=== PATIENT | male | born 1970 | race Two or more races ===

== ENCOUNTER 2024-10-18 15:36 | Inpatient (IN) | payer MEDICAID, OTHER ==
[~2024-10-18] VITALS: Ht 182.9 cm; Wt 88.5 kg
[2024-10-18 16:20] LABS: Basophils # (auto) 0 10 ^3/uL (0-0.2); Basophils % (auto) 0.3 % (0.0-2.0); Eosinophils # (auto) 0.1 10 ^3/uL (0-0.8); Eosinophils % (auto) 1.4 % (0.0-7.0); Hematocrit 39.7 % (41.0-53.0); Hemoglobin 13.5 g/dL (13.5-17.5); Lymphocytes # (auto) 1.4 10 ^3/uL (0.4-5.4); Lymphocytes % (auto) 18.5 % (10.0-50.0); Mean Corpuscular Hemoglobin 33.7 pg (28.0-32.0); Monocytes # (auto) 0.7 10 ^3/uL (0-1.3); Monocytes % (auto) 8.9 % (0.0-12.0); Neutrophils # (auto) 5.4 10 ^3/uL (1.6-8.6); Neutrophils % (auto) 70.9 % (37.0-80.0); Platelet Count (auto) 189 10^3/uL (140-450); Red Blood Cells 4.01 10^6/uL (4.5-5.90); Red Cell Distribution Width 12.8 % (11.8-14.3); White Blood Cell 7.7 10^3/uL (4.4-10.8)
--- NOTE | 2024-10-18 16:23 | DVH ---
CHEST RADIOGRAPH Indication: CP Technique: Frontal and lateral view of the chest was obtained Comparison: None FINDINGS: Lines and Tubes: None Lungs: Clear Pleura: No effusion. No pneumothorax. Cardiomediastinal contours: Unremarkable Bones: Unremarkable IMPRESSION: 1. No evidence of acute disease. Patient is status post sternotomy.
--- NOTE | 2024-10-18 16:24 | ED.PDOC ---
History of Present Illness HPI Comments 53M presents to the ER w/ prior MHx of Stage 3 kidney [place];SHx of CABG, Tumor Removal Sx, ABD Exploratory Sx and the c/c of CP. Pt reports on having a family member who go him sick earlier last week w/ him having a cough on 10/11/24 and having N/V/D, w/ sharp, pressure like CP which radiated down the right arm and up to the chin on Monday of 10/14/23. [facility] and [facility] 2L of O2 NC and did not tell us the pt's %. Social Hx of marijuana use, but denies alcohol and tobacco use. Denies chills, fever, SOB. Denies any other associated symptom's, modifiers, or recent injuries or sick contact at this time. Chief Complaint: Chest Pain Time Seen by MD: 15:55 Reviewed Notes: Nurses Notes, Medications, Allergies Allergies: Coded Allergies: Penicillins (Verified Allergy, Unknown, 10/18/24) Morphine (Verified Adverse Reaction, Unknown, 10/18/24) extreme headache Information Source: Patient Mode of Arrival: Ambulatory Severity: Moderate Timing: Days Duration: Since onset, Days Prehospital treatment: None Past Medical History PAST MEDICAL HISTORY: CKF (Stage 3) Surgical History: CABG Surgical History (Other): Tumor Removal, ABD exploratory Sx Family History Family History: Reviewed,noncontributory to illness, Unknown Social History Smoker: Non-Smoker Alcohol: Denies ETOH Use Drugs: Marijuana Lives In: Home Constitutional: denies: chills, diaphoresis, fatigue, fever, malaise, sweats, weakness, others EENTM: denies: blurred vision, double vision, ear bleeding, ear discharge, ear drainage, ear pain, ear ringing, eye pain, eye redness, hearing loss, mouth pain, mouth swelling, nasal discharge, nose bleeding, nose congestion, nose pain, photophobia, tearing, throat pain, throat swelling, voice changes, others Respiratory: reports: cough, shortness of breath; denies: hemoptysis, orthopnea, SOB at rest, SOB with excertion, stridor, wheezing, others Cardiovascular: reports: chest pain; denies: dizzy spells, diaphoresis, Dyspnea on exertion, edema, irregular heart beat, left arm pain, lightheadedness, palpitations, PND, syncope, others Gastrointestinal: reports: diarrhea, nausea, vomiting; denies: abdomen distended, abdominal pain, blood streaked bowels, constipated, dysphagia, difficulty swallowing, hematemesis, melena, poor appetite, poor fluid intake, rectal bleeding, rectal pain, others Genitourinary: denies: burning, dysuria, flank pain, frequency, hematuria, incontinence, penile discharge, penile sore, pain, testicle pain, testicle swelling, urgency, others Neurological: denies: dizziness, fainting, headache, left sided numbness, left sided weakness, numbness, paresthesia, pre-existing deficit, right sided numbness, right sided weakness, seizure, speech problems, tingling, tremors, weakness, others Musculoskeletal: denies: back pain, gout, joint pain, joint swelling, muscle pain, muscle stiffness, neck pain, others Integumetry: denies: bruises, change in color, change in hair/nails, dryness, laceration, lesions, lumps, rash, wounds, others Allergic/Immunocompromised: denies: Difficulty Healing, Frequent Infections, Hives, Itching, others Hematologic/Lymphatic: denies: anemia, blood clots, easy bleeding, easy bruising, swollen glands, others Endocrine: denies: excessive hunger, excessive sweating, excessive thirst, excessive urination, flushing, intolerance to cold, intolerance to heat, unexplained weight gain, unexplained weight loss, others Psychiatric: denies: anxiety, bipolar disorder, depression, hopeless, panic disorder, schizophrenia, sleepless, suicidal, others All Other Systems: Reviewed and Negative Physical Exam General Appearance: Moderate Distress HEENT: Pale Conjuntivae (L), Pale Conjuntivae (R), Pharynx Normal, TMs Normal Neck: Full Range of Motion, Non-Tender, Normal, Normal Inspection Respiratory: Chest Non-Tender, Lungs Clear, No Accessory Muscle Use, No Respiratory Distress, Normal Breath Sounds Cardiovascular: No Edema, No JVD, No Murmur, No Gallop, Normal Peripheral Pulses, Regular Rate/Rhythm Breast Exam: Deferred Gastrointestinal: No Organomegaly, Non Tender, No Pulsatile Mass, Normal Bowel Sounds, Soft Genitalia: Deferred Pelvic: Deferred Rectal: Deferred Extremities: No calf tenderness, Normal capillary refill, Normal inspection, Normal range of motion, Non-tender, No pedal edema Musculoskeletal : Apperance: Normal Neurologic: Alert, rug hooker II-XII nml as Tested, Motor Weakness, Normal Affect, Normal Mood, No Sensory Deficits Cerebellar Function: Normal Reflexes: Normal Skin: Dry, Normal Color, Warm Lymphatic: No Adenopathy Was a procedure done? Was a procedure done?: No EKG EKG : Pulse Rate (adult): 86 [place]: Normal Cardiac Rhythm: NSR Block: None ST: Nonsp Differential Dx Considerations may include: ACS, MD, acute myocardial ischemia, PE X-Ray, Labs, Meds, VS Vital Signs Date Time Temp Pulse Resp B/P (MAP) Pulse Ox O2 Delivery O2 Flow Rate FiO2 10/18/24 19:00 69 18 129/84 (99) 96 10/18/24 18:38 73 10/18/24 17:15 Room Air* 0 21 10/18/24 17:00 98.4 72 16 116/63 (80) 97 98.4 10/18/24 16:37 86 10/18/24 15:44 84 10/18/24 15:36 98.4 64 64 107/68 (81) 88 98.4 Lab Test 10/18/24 18:40 10/18/24 16:41 10/18/24 15:59 Range/Units Troponin I High Sensitivity 4250 *H 4418 *H 4529 *H </=54 ng/L Influenza Type A Antigen Negative Negative Influenza Type B Antigen Negative Negative SARS-CoV-2 Antigen (Rapid) Negative NEGATIVE White Blood Count 7.7 4.4-10.8 10^3/uL Red Blood Count 4.01 L 4.5-5.90 10^6/uL Hemoglobin 13.5 13.5-17.5 g/dL Hematocrit 39.7 L 41.0-53.0 % Mean Corpuscular Volume 99.0 80.0-100.0 fL Mean Corpuscular Hemoglobin 33.7 H 28.0-32.0 pg Mean Corpuscular Hemoglobin Concent 34.0 32.0-36.0 g/dL Red Cell Distribution Width 12.8 11.8-14.3 % Platelet Count 189 140-450 10^3/uL Mean Platelet Volume 7.6 6.9-10.8 fL Neutrophils (%) (Auto) 70.9 37.0-80.0 % Lymphocytes (%) (Auto) 18.5 10.0-50.0 % Monocytes (%) (Auto) 8.9 0.0-12.0 % Eosinophils (%) (Auto) 1.4 0.0-7.0 % Basophils (%) (Auto) 0.3 0.0-2.0 % Neutrophils # (Auto) 5.4 1.6-8.6 10 ^3/uL Lymphocytes # (Auto) 1.4 0.4-5.4 10 ^3/uL Monocytes # (Auto) 0.7 0-1.3 10 ^3/uL Eosinophils # (Auto) 0.1 0-0.8 10 ^3/uL Basophils # (Auto) 0 0-0.2 10 ^3/uL Nucleated Red Blood Cells 0.0 % Prothrombin Time 10.6 9.3-11.8 sec Prothrombin Time INR 1.00 0.9-1.15 Activated Partial Thromboplast Time 26.5 24.5-34.5 SEC Sodium Level 141 136-145 mmol/L Potassium Level 3.9 3.5-5.1 mmol/L Chloride Level 108 H 98-107 mmol/L Carbon Dioxide Level 27 20-31 mmol/L Anion Gap 6 5-15 Blood Urea Nitrogen 20 9-23 mg/dL Creatinine 1.86 H 0.700-1.30 mg/dL Glomerular Filtration Rate Calc 42 >90 mL/min BUN/Creatinine Ratio 10.8 10.0-20.0 Serum Glucose 113 H 74-106 mg/dL Calcium Level 10.1 8.7-10.4 mg/dL B-Type Natriuretic Peptide 51.60 0-100 pg/mL Current Medications Medications (Trade) Dose Ordered Sig/Fabien Route Start Time Stop Time Status Last Admin Aspirin 162 mg ONCE ONCE PO 10/18/24 17:00 10/18/24 17:01 DC 10/18/24 17:11 Heparin Sodium (Porcine) 4,000 units ONCE ONCE IV 10/18/24 18:00 10/18/24 18:01 DC 10/18/24 19:02 Heparin Sodium/ Dextrose 250 ml @ 10 mls/hr Q24H IV 10/18/24 19:00 10/18/24 19:03 Atorvastatin Calcium (Lipitor) 80 mg ONCE ONCE PO 10/18/24 18:00 10/18/24 18:01 DC 10/18/24 18:17 IMPRESSION: 1. No evidence of acute disease. Patient is status post sternotomy. IV Hep-Lock was established The patient was given aspirin 162 mg by mouth The patient was bolused with heparin at 4000 units IV push secondary to the elevated troponin levels and being non STEMI The patient was also being started on a heparin drip. The patient was given Lipitor The patient's chemistry panel shows a creatinine of 1.86 but otherwise within normal limits The patient's CBC is within normal limits The influenza a and influenza B are negative The COVID test is negative At this time, the patient was being admitted Cardiology did come and see the patient and the patient will be taken to the solder making laborer either tomorrow or the following day. We will continue to monitor the patient was troponin levels The 1st troponin level came back at 4529 The troponin level has stayed around 8991-4568 The patient was being admitted We discussed the findings with the patient and they are in agreement with the management. Images Reviewed?: Images reviewed and evaluated by me Time of 1ST Reevaluation: 16:25 Reevaluation 1ST: Unchanged Patient Education/Counseling: Diagnosis, Treatment, Prognosis Family Education/Counseling: No Family Present Departure 1 Departure Time of Disposition: 20:26 Impression: Primary Impression: Non-STEMI (non-ST elevated myocardial infarction) Disposition: 09 ADMITTED INPATIENT Admit to: [facility] Condition: Fair Critical Care Note Critical Care Time?: Yes (55 min-critical care time only) Stability Stability form required: Yes Unstable for transfer: Telemetry monitoring (Telemetry monitoring required), ED Physician Assesment (Clinical assesment) Heart Score Heart Score: Heart Score Response (Comments) Value History Moderate Suspicious 1 EKG Repolarization Disturb 1 Age 45-64 1 Risk Factors >3 or Hx ASHD 2 Troponin >3 x's Normal limit 2 Total 7 I personally scribed for BETHANY GARRETT MD ([email or web address]) on 10/18/24 at 16:24. Electronically submitted by Rubens Valencia ([employer]). I personally scribed for BETHANY GARRETT MD ([email or web address]) on 10/18/24 at 18:44. Electronically submitted by Rubens Valencia ([employer]). BETHANY GARRETT MD October 18, 2024 16:24
[2024-10-18 17:06] LABS: Potassium 3.9 mmol/L (3.5-5.1); Sodium 141 mmol/L (136-145)
[2024-10-18 17:07] LABS: Anion Gap 6 (5-15); Calcium 10.1 mg/dL (8.7-10.4); Carbon Dioxide 27 mmol/L (20-31)
[2024-10-18 17:10] LABS: Chloride 108 mmol/L (98-107)
[2024-10-18] MEDS: ASPirin 81 mg TAB PO ONE (17:11)
[2024-10-18 17:12] LABS: BUN/Creatinine Ratio 10.8 (10.0-20.0); Blood Urea Nitrogen 20 mg/dL (9-23)
[2024-10-18 17:13] LABS: Glucose 113 mg/dL (74-106)
[2024-10-18] MEDS: ATORVASTATIN 20 MG TAB PO ONE (18:17)
[2024-10-18 18:31] LABS: Partial Thromboplastin Time 26.5 SEC (24.5-34.5); Prothrombin Time 10.6 sec (9.3-11.8)
[2024-10-18] MEDS: HEPARIN SODIUM (PORCINE) 5000 UNITS/ML 1ML VIAL IV ONE (19:02)
[2024-10-18] MEDS: HEPARIN DRIP/D5W 100UNITS/ML 250 ML IV SCH (19:03)
--- NOTE | 2024-10-18 19:13 | DVHINCON2 ---
Allergies: Coded Allergies: Penicillins (Verified Allergy, Unknown, 10/18/24) Morphine (Verified Adverse Reaction, Unknown, 10/18/24) extreme headache Current Medications Current Medications Medications (Trade) Dose Ordered Sig/Fabien Route PRN Reason Start Time Stop Time Status Last Admin Heparin Sodium/ Dextrose 250 ml @ 10 mls/hr Q24H IV 10/18/24 19:00 10/18/24 19:03 Vital Signs Vital Signs Date Time Temp Pulse Resp B/P (MAP) Pulse Ox O2 Delivery O2 Flow Rate FiO2 10/18/24 18:38 73 10/18/24 15:36 98.4 64 107/68 (81) 88 98.4 Labs/Diagnostic Data Labs Test 10/18/24 18:40 10/18/24 15:59 Range/Units White Blood Count 7.7 4.4-10.8 10^3/uL Red Blood Count 4.01 L 4.5-5.90 10^6/uL Hemoglobin 13.5 13.5-17.5 g/dL Hematocrit 39.7 L 41.0-53.0 % Mean Corpuscular Volume 99.0 80.0-100.0 fL Mean Corpuscular Hemoglobin 33.7 H 28.0-32.0 pg Mean Corpuscular Hemoglobin Concent 34.0 32.0-36.0 g/dL Red Cell Distribution Width 12.8 11.8-14.3 % Platelet Count 189 140-450 10^3/uL Mean Platelet Volume 7.6 6.9-10.8 fL Neutrophils (%) (Auto) 70.9 37.0-80.0 % Lymphocytes (%) (Auto) 18.5 10.0-50.0 % Monocytes (%) (Auto) 8.9 0.0-12.0 % Eosinophils (%) (Auto) 1.4 0.0-7.0 % Basophils (%) (Auto) 0.3 0.0-2.0 % Neutrophils # (Auto) 5.4 1.6-8.6 10 ^3/uL Lymphocytes # (Auto) 1.4 0.4-5.4 10 ^3/uL Monocytes # (Auto) 0.7 0-1.3 10 ^3/uL Eosinophils # (Auto) 0.1 0-0.8 10 ^3/uL Basophils # (Auto) 0 0-0.2 10 ^3/uL Nucleated Red Blood Cells 0.0 % Prothrombin Time 10.6 9.3-11.8 sec Prothrombin Time INR 1.00 0.9-1.15 Activated Partial Thromboplast Time 26.5 24.5-34.5 SEC Sodium Level 141 136-145 mmol/L Potassium Level 3.9 3.5-5.1 mmol/L Chloride Level 108 H 98-107 mmol/L Carbon Dioxide Level 27 20-31 mmol/L Anion Gap 6 5-15 Blood Urea Nitrogen 20 9-23 mg/dL Creatinine 1.86 H 0.700-1.30 mg/dL Glomerular Filtration Rate Calc 42 >90 mL/min BUN/Creatinine Ratio 10.8 10.0-20.0 Serum Glucose 113 H 74-106 mg/dL Calcium Level 10.1 8.7-10.4 mg/dL B-Type Natriuretic Peptide 51.60 0-100 pg/mL VIKA CHARLES MD October 18, 2024 19:13
--- NOTE | 2024-10-18 19:16 | DVHCONRES ---
Date Seen: October 18, 2024 Resident Creating Document: RAMÓN AZAR RESIDENT Referring Physician Dr Garcia Reason for Consultation elevated trops History of Present Illness 53-year-old male with past medical history of VT status post CABG 2010, CKD stage 3, HIV, and past surgical history of tumor removal from neck five years ago and abdomen surgery 1991 presented with complaints of nausea, vomiting, di arrhea, chest pain, abdominal pain. Mentioned that a week ago he started having flu-like symptoms including chest and nasal congestion, nausea, vomiting, abdominal pain and diarrhea. Also mentioned having cough with greenish sputum. He mentioned patient had initially abdominal pain which was in epigastric region and later had chest pain which he describes as stabbing, radiating to the left arm, not radiating to back or jaw, improved on exercise, was present on rest, no relation with posture. He mentioned that chest pain was similar in type when he had a heart attack but very less in intensity compared to the previous episode. Refused any shortness of breath, palpitations, orthopnea, PND. He had echocardiogram and stress test 1-1/2 years ago which was within normal limits. He also mentioned that he had low urine output for last seven days. Presented to the ER patient had elevated tropes due to which Cardiology was consulted. Patient is not mentioning of any active chest pain. Social history Quit smoking in 2010, was smoking since the age of 11, is to smoke 1-2 packs per day Denied alcohol use Patient consumes marijuana by smoking "couple of pipes every week" Denied any other drugs Family history Significant for CABG in father and grandfather Medication history Amlodipine Metoprolol Lipitor Furosemide Aspirin Biktarvy Gemfibrozil Omeprazole Allergies: Coded Allergies: Penicillins (Verified Allergy, Unknown, 10/18/24) Morphine (Verified Adverse Reaction, Unknown, 10/18/24) extreme headache Current Medications Current Medications Medications (Trade) Dose Ordered Sig/Fabien Route PRN Reason Start Time Stop Time Status Last Admin Heparin Sodium/ Dextrose 250 ml @ 10 mls/hr Q24H IV 10/18/24 19:00 Review of Systems as described in the HPI Vital Signs Vital Signs Date Time Temp Pulse Resp B/P (MAP) Pulse Ox O2 Delivery O2 Flow Rate FiO2 10/18/24 18:38 73 10/18/24 15:36 98.4 64 107/68 (81) 88 98.4 Physical Exam Examination General Appearance: Alert, Oriented X3, Cooperative, No acute distress HEENT: EOMI Respiratory: Clear to auscultation, Normal air movement Cardiovascular: mild chest tenderness, Regular rate, Normal S1, Normal S2 Abdominal: Normal bowel sounds Extremities: No cyanosis, No edema, Normal pulses, No tenderness/swelling Skin: No rashes, No breakdown Neuro: Normal gait, Normal speech, Strength at 5/5 X4 ext, Normal tone, Sensation intact, Cranial nerves 3-12 NL, Reflexes 2+ Psych/Mental Status: Mental status NL, Mood NL Labs/Diagnostic Data Labs Test 10/18/24 18:40 10/18/24 15:59 Range/Units White Blood Count 7.7 4.4-10.8 10^3/uL Red Blood Count 4.01 L 4.5-5.90 10^6/uL Hemoglobin 13.5 13.5-17.5 g/dL Hematocrit 39.7 L 41.0-53.0 % Mean Corpuscular Volume 99.0 80.0-100.0 fL Mean Corpuscular Hemoglobin 33.7 H 28.0-32.0 pg Mean Corpuscular Hemoglobin Concent 34.0 32.0-36.0 g/dL Red Cell Distribution Width 12.8 11.8-14.3 % Platelet Count 189 140-450 10^3/uL Mean Platelet Volume 7.6 6.9-10.8 fL Neutrophils (%) (Auto) 70.9 37.0-80.0 % Lymphocytes (%) (Auto) 18.5 10.0-50.0 % Monocytes (%) (Auto) 8.9 0.0-12.0 % Eosinophils (%) (Auto) 1.4 0.0-7.0 % Basophils (%) (Auto) 0.3 0.0-2.0 % Neutrophils # (Auto) 5.4 1.6-8.6 10 ^3/uL Lymphocytes # (Auto) 1.4 0.4-5.4 10 ^3/uL Monocytes # (Auto) 0.7 0-1.3 10 ^3/uL Eosinophils # (Auto) 0.1 0-0.8 10 ^3/uL Basophils # (Auto) 0 0-0.2 10 ^3/uL Nucleated Red Blood Cells 0.0 % Prothrombin Time 10.6 9.3-11.8 sec Prothrombin Time INR 1.00 0.9-1.15 Activated Partial Thromboplast Time 26.5 24.5-34.5 SEC Sodium Level 141 136-145 mmol/L Potassium Level 3.9 3.5-5.1 mmol/L Chloride Level 108 H 98-107 mmol/L Carbon Dioxide Level 27 20-31 mmol/L Anion Gap 6 5-15 Blood Urea Nitrogen 20 9-23 mg/dL Creatinine 1.86 H 0.700-1.30 mg/dL Glomerular Filtration Rate Calc 42 >90 mL/min BUN/Creatinine Ratio 10.8 10.0-20.0 Serum Glucose 113 H 74-106 mg/dL Calcium Level 10.1 8.7-10.4 mg/dL B-Type Natriuretic Peptide 51.60 0-100 pg/mL Plan/Recommendation Assessment and plan # chest pain, possible NSTEMI # elevated tropes , possible NSTEMI # history of VT status post CABG 2010 -patient takes aspirin and statin at home -Trops 4529 , 4418 # hypertension Patient takes amlodipine, metoprolol, at home # HIV Mentioned CD4 count greater than 500 and no detectable HIV count Follows Dr. Nicholson On Biktarvy #? ANGEL on stage III CKD -mentioned has been having any urea # possible UTI and viral gastroenteritis Plan Continue aspirin and statin Monitor with telemetry EKG Repeat trops Echo started on heparin drip schedule the patient for LHC on monday Case discussion with Dr CHARLES agree with plan pt seen with cv team heparn gtt check echo possible LHC pt was a former pt of mine [place] to [place] Plan discussed with: Patient, Other RAMÓN AZAR RESIDENT October 18, 2024 19:16 VIKA CHARLES MD October 19, 2024 14:01
[2024-10-18 19:33] LABS: COVID19 ANTIGEN SOFIA FIA NEGATIVE (NEGATIVE)
[2024-10-18 19:34] LABS: Rapid Influenza A Negative (Negative); Rapid Influenza B Negative (Negative)
[2024-10-18 19:50] VITALS: O2SAT 96
[2024-10-18] MEDS ORDERED: DOCUSATE SOD 100 MG CAP PO PRN (20:15)
[2024-10-18] MEDS ORDERED: ONDANSETRON HCL 4 MG/2 ML VIAL IV PRN (20:15)
[2024-10-18] MEDS ORDERED: HYDROcodone-ACET 5/325MG TAB PO PRN (20:15)
[2024-10-18] MEDS ORDERED: ACETAMINOPHEN 325 MG TAB PO PRN (20:15)
[2024-10-18] MEDS ORDERED: hydrALAZINE HCL 20 MG/ML VL IV PRN (20:15)
--- NOTE | 2024-10-18 20:33 | ECG ---
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
--- NOTE | 2024-10-18 21:53 | DVHHP2 ---
History of Present Illness Reason for Visit: Non-STEMI (non-ST elevated myocardial infarction) History of Present Illness The patient is a 53-year-old male with past medical history of CKF stage III, CHF, hyperlipidemia, and hypertension who presented to [facility] ED with complaint of chest pain. Patient reports symptoms progressively get worse with substernal chest pain, radiating down to the right, getting worse that prompted this visit. Patient was seen and evaluated in the ED, laboratory data shows WBC 7.7, platelets 189, sodium 141, potassium 3.9, BUN 20, creatinine 1.86, glucose 113, troponin 4529, BNP 51.60, blood pressure 107/68, heart rate 86, temperature 98.4 F, O2 saturation 88% on oxygen. Chest x-ray show no evidence of acute disease. Please see medication orders section in the computer. On my assessment, patient denied chest pain, no headache, no dizziness, no diaphoresis, currently on oxygen, no nausea, no vomiting, no fever, no chills. Patient was admitted for further evaluation and medical management. Past Medical History Chronic kidney failure stage III, CHF, HLD, HTN. Past Surgical History CABG, Tumor Removal, ABD exploratory surgery Family History Reviewed, noncontributory to the management of this case. Past Social History The patient lives at home, denies smoking, no alcohol, uses marijuana. Review of Systems Constitutional: Yes: Weakness; No: Fever, Chills, Sweats, Malaise, Other Eyes: No: Pain, Vision change, Conjunctivae inflammation, Eyelid inflammation, Other, Redness ENT: No: Ear pain, Ear discharge, Nose pain, Nose discharge, Nose congestion, Mouth pain, Mouth swelling, Throat pain, Throat swelling, Other Respiratory: No: Cough, Dry, Shortness of breath, SOB with excertion, Wheezing, Hemoptysis, Pleuritic Pain, Sputum, Wheezing, Other Cardiovascular: Chest Pain; No: Palpitations, Orthopnea, Paroxysmal Noc. Dyspnea, Edema, Lt Headedness, Other Gastrointestinal: No: Nausea, Vomiting, Abdominal Pain, Diarrhea, Constipation, Melena, Hematochezia, Other Genitourinary: No Dysuria, No Frequency, No Incontinence, No Hematuria, No Ret ention, No Other Musculoskeletal: shoulder pain; No: other, neck pain, arm pain, back pain, hand pain, leg pain, foot pain Skin: No: Rash, Lesions, Jaundice, Bruising, Other Neurological: No: Weakness, Numbness, Incoordination, Change in speech, Confusion, Seizures, Other Allergies: Coded Allergies: Penicillins (Verified Allergy, Unknown, 10/18/24) Morphine (Verified Adverse Reaction, Unknown, 10/18/24) extreme headache Medications Current Medications Medications Dose Ordered Sig/Fabien Route Start Time Stop Time Status Last Admin Dose Admin Heparin Sodium/ Dextrose 250 ml @ 10 mls/hr Q24H IV 10/18/24 19:00 10/18/24 19:03 10 MLS/HR Atorvastatin Calcium 40 mg HS PO 10/18/24 22:00 Famotidine 20 mg Q12HR IV 10/18/24 22:00 Aspirin 81 mg DAILY PO 10/19/24 10:00 Tamsulosin HCl 0.4 mg QPM PO 10/19/24 18:00 Hydralazine HCl 10 mg Q6HP PRN IV 10/18/24 20:15 Sodium Chloride 10 ml Q8HR IV 10/18/24 22:00 Acetaminophen/ Hydrocodone Bitart 1 tab Q4HP PRN PO 10/18/24 20:15 Ondansetron HCl 4 mg Q4HP PRN IV 10/18/24 20:15 Docusate Sodium 100 mg BIDPRN PRN PO 10/18/24 20:15 Acetaminophen 650 mg Q6HP PRN PO 10/18/24 20:15 Exam Vital Signs Vital Signs Date Time Temp Pulse Resp B/P (MAP) Pulse Ox O2 Delivery O2 Flow Rate FiO2 10/18/24 20:28 86 10/18/24 19:00 18 129/84 (99) 96 10/18/24 17:15 Room Air* 0 21 10/18/24 17:00 98.4 98.4 General Appearance: Alert, Oriented X3, Cooperative, No acute distress HEENT: Atraumatic, PERRLA, EOMI, Mucous membr. moist/pink Respiratory: Clear to auscultation, Normal air movement, Other Cardiovascular: Regular rate, Normal S1, Normal S2, No murmurs Abdominal: Normal bowel sounds, Soft, No tenderness, No hepatospenomegaly, No masses Extremities: No clubbing, No cyanosis, No edema, Normal pulses, No tenderness/swelling Skin: No rashes, No breakdown, No significant lesion Neuro: Normal speech, Normal tone, Sensation intact, Cranial nerves 3-12 NL, Reflexes 2+, Other (Generalized weakness) Psych/Mental Status: Mental status NL, Mood NL Labs/Xrays Labs Test 10/18/24 18:40 10/18/24 15:59 Range/Units Troponin I High Sensitivity 4250 *H </=54 ng/L Influenza Type A Antigen Negative Negative Influenza Type B Antigen Negative Negative SARS-CoV-2 Antigen (Rapid) Negative NEGATIVE White Blood Count 7.7 4.4-10.8 10^3/uL Red Blood Count 4.01 L 4.5-5.90 10^6/uL Hemoglobin 13.5 13.5-17.5 g/dL Hematocrit 39.7 L 41.0-53.0 % Mean Corpuscular Volume 99.0 80.0-100.0 fL Mean Corpuscular Hemoglobin 33.7 H 28.0-32.0 pg Mean Corpuscular Hemoglobin Concent 34.0 32.0-36.0 g/dL Red Cell Distribution Width 12.8 11.8-14.3 % Platelet Count 189 140-450 10^3/uL Mean Platelet Volume 7.6 6.9-10.8 fL Neutrophils (%) (Auto) 70.9 37.0-80.0 % Lymphocytes (%) (Auto) 18.5 10.0-50.0 % Monocytes (%) (Auto) 8.9 0.0-12.0 % Eosinophils (%) (Auto) 1.4 0.0-7.0 % Basophils (%) (Auto) 0.3 0.0-2.0 % Neutrophils # (Auto) 5.4 1.6-8.6 10 ^3/uL Lymphocytes # (Auto) 1.4 0.4-5.4 10 ^3/uL Monocytes # (Auto) 0.7 0-1.3 10 ^3/uL Eosinophils # (Auto) 0.1 0-0.8 10 ^3/uL Basophils # (Auto) 0 0-0.2 10 ^3/uL Nucleated Red Blood Cells 0.0 % Prothrombin Time 10.6 9.3-11.8 sec Prothrombin Time INR 1.00 0.9-1.15 Activated Partial Thromboplast Time 26.5 24.5-34.5 SEC Sodium Level 141 136-145 mmol/L Potassium Level 3.9 3.5-5.1 mmol/L Chloride Level 108 H 98-107 mmol/L Carbon Dioxide Level 27 20-31 mmol/L Anion Gap 6 5-15 Blood Urea Nitrogen 20 9-23 mg/dL Creatinine 1.86 H 0.700-1.30 mg/dL Glomerular Filtration Rate Calc 42 >90 mL/min BUN/Creatinine Ratio 10.8 10.0-20.0 Serum Glucose 113 H 74-106 mg/dL Calcium Level 10.1 8.7-10.4 mg/dL B-Type Natriuretic Peptide 51.60 0-100 pg/mL PATIENT: KEITH SOW ACCT: [id number] UNIT: [id number] : 1970 LOC: ER ROOM / BED: / AGE / SEX: 53 / M ADM STATUS: REG ER SERVICE 1540 ORDERING PHYSICIAN: BETHANY GARRETT MD PROCEDURE(s): CXR2 - CHEST TWO VIEWS ROUTINE REASON: CP ORDER NUMBER(s): [id number], ACCESSION NUMBER(s): [id number] CHEST RADIOGRAPH Indication: CP Technique: Frontal and lateral view of the chest was obtained Comparison: None FINDINGS: Lines and Tubes: None Lungs: Clear Pleura: No effusion. No pneumothorax. Cardiomediastinal contours: Unremarkable Bones: Unremarkable IMPRESSION: 1. No evidence of acute disease. Patient is status post sternotomy. Assessment/Plan Assessment/Plan Generalized weakness Acute on chronic renal failure Non-STEMI (non-ST elevated myocardial infarction) Plan 1. Admit to telemetry unit 2. Breathing treatment 3. Pain control management 4. Management of fluids and electrolytes 5. Consultation for Cardiology 6. Diagnostic tests chest x-ray 7. DVT prophylaxis-on heparin drip 8. Repeat labs CBC, CMP in a.m. 9. Continue with current medical management 10. Treatment plan discussed with patient and RN. Patient verbalized understanding. Plan discussed with: Patient, Other (RN) My Orders Orders - ELOY GUNTER DNP Procedure Category Date Status Time Atorvastatin (Lipitor) PHA 10/18/24 In Process 22:00 Famotidine Injection PHA 10/18/24 In Process (Pepcid Injection) 22:00 Aspirin Tablet PHA 10/19/24 In Process 10:00 Tamsulosin PHA 10/19/24 In Process Hydrochloride (Flomax) 18:00 Hydralazine Injection PHA 10/18/24 In Process (Apresoline Inject 20:15 Allergies ALLY 10/18/24 In Process 20:05 Code Status CODE 10/18/24 Transmitted 20:05 Sodium Chloride Lock PHA 10/18/24 In Process (Saline Lock Ns) 22:00 Oxygen Per Hour RT 10/18/24 Transmitted 20:05 Hydrocodone-Acet PHA 10/18/24 In Process 5/325mg Tab ([place] 20:15 Ondansetron Hcl PHA 10/18/24 In Process (Zofran) 20:15 Docusate Sodium PHA 10/18/24 In Process Capsule (Colace 20:15 Fall Risk Precautions ALLY 10/18/[address] 20:05 Complete Blood Count LAB 10/19/24 Verified 01:00 Comprehensive LAB 10/19/24 Verified Metabolic Panel 01:00 Condition: Serious ALLY 10/18/24 In Process 20:05 Acetaminophen Tablet PHA 10/18/24 In Process (Tylenol Tablet) 20:15 Maintain Bed Rest ALLY 10/18/24 In Process 20:05 Sequential ALLY 10/18/24 In Process Compression Device Problem List: (1) Generalized weakness (2) Acute on chronic renal failure (3) Non-STEMI (non-ST elevated myocardial infarction) Date of Service: October 18, 2024 Billing Provider: ELOY GUNTER DNP Common Visit Codes: [id number] INP/OBS CARE (HIGH) ELOY GUNTER DNP October 18, 2024 21:53
[2024-10-18] MEDS ORDERED: FAMOTIDINE (10MG/ML) 2ML VL IV SCH (22:00)
[2024-10-18] MEDS ORDERED: NITROGLYCERIN 0.4 MG SL TAB SL PRN (22:00)
[2024-10-18] MEDS: SODIUM CHLOR 0.9% PF (SALINE LOCK) 10ML VIAL/SYR IV SCH (22:00)
[2024-10-18] MEDS ORDERED: ATORVASTATIN 20 MG TAB PO SCH (22:00)
[2024-10-18] MEDS ORDERED: MORPHINE SULFATE INJ 2 MG/ml SYRG IV PRN (22:00)
[2024-10-18] MEDS: ATORVASTATIN 20 MG TAB PO SCH (23:00)
[2024-10-18] MEDS: FAMOTIDINE (10MG/ML) 2ML VL IV SCH (23:45)
[2024-10-18 23:53] LABS: INR 1.04 (0.9-1.15); Partial Thromboplastin Time 46.6 SEC (24.5-34.5)
[2024-10-19] VITALS (12 sets, daily range): BP systolic 109–133; BP diastolic 67–93; PULSE 66–83; RESP 16–21; TEMP 97.8–98.3; O2SAT 89–98
[2024-10-19] MEDS: HEPARIN DRIP/D5W 100UNITS/ML 250 ML IV SCH (01:45)
[2024-10-19 02:33] LABS: Urine Bacteria None Seen /hpf (None Seen)
[2024-10-19 02:43] LABS: Urine Blood Negative /uL (Negative); Urine Clarity Clear (Clear); Urine Color Yellow (Yellow); Urine Mucus FEW (None Seen); Urine Protein, UAD TRACE (Negative); Urine Specific Gravity 1.031 (1.001-1.035); Urine Squamous Epithelial Cell None Seen /hpf (<5); Urine Urobilinogen 2 mg/dL (Negative); Urine WBC 4 /HPF (0-3); Urine pH 6.5 (5.0-9.0)
[2024-10-19 03:25] LABS: INR 1.07 (0.9-1.15); Partial Thromboplastin Time 50.4 SEC (24.5-34.5); Prothrombin Time 11.3 sec (9.3-11.8)
[2024-10-19] MEDS: HYDROcodone-ACET 5/325MG TAB PO PRN (04:02)
[2024-10-19 07:39] LABS: Basophils # (auto) 0 10 ^3/uL (0-0.2); Basophils % (auto) 0.3 % (0.0-2.0); Eosinophils # (auto) 0.1 10 ^3/uL (0-0.8); Eosinophils % (auto) 2.2 % (0.0-7.0); Hematocrit 36.2 % (41.0-53.0); Hemoglobin 12.4 g/dL (13.5-17.5); Lymphocytes # (auto) 1.4 10 ^3/uL (0.4-5.4); Mean Corpuscular Hemoglobin 33.6 pg (28.0-32.0); Mean Corpuscular Hgb Conc. 34.1 g/dL (32.0-36.0); Mean Corpuscular Volume 98.6 fL (80.0-100.0); Monocytes # (auto) 0.6 10 ^3/uL (0-1.3); Monocytes % (auto) 9.5 % (0.0-12.0); Neutrophils # (auto) 3.8 10 ^3/uL (1.6-8.6); Platelet Count (auto) 151 10^3/uL (140-450); Red Blood Cells 3.67 10^6/uL (4.5-5.90); White Blood Cell 5.9 10^3/uL (4.4-10.8)
[2024-10-19 07:47] LABS: INR 1.06 (0.9-1.15); Partial Thromboplastin Time 60.7 SEC (24.5-34.5); Prothrombin Time 11.2 sec (9.3-11.8)
[2024-10-19 07:49] LABS: Alanine Aminotransferase 26 U/L (7-40); Albumin 4.2 g/dL (3.2-4.8); Alkaline Phosphatase 62 U/L (46-116); Anion Gap 6 (5-15); Aspartate Aminotransferase 38 U/L (13-40); BUN/Creatinine Ratio 12.2 (10.0-20.0); Blood Urea Nitrogen 19 mg/dL (9-23); Calcium 9.6 mg/dL (8.7-10.4); Carbon Dioxide 26 mmol/L (20-31); Glucose 91 mg/dL (74-106); Potassium 3.8 mmol/L (3.5-5.1); Sodium 140 mmol/L (136-145); Total Protein 6.3 g/dL (5.7-8.2)
[2024-10-19 07:50] LABS: Bilirubin, Total 0.6 mg/dL (0.2-1.0)
[2024-10-19 07:52] LABS: Chloride 108 mmol/L (98-107)
--- NOTE | 2024-10-19 08:59 | CONS ---
Pharmacy Clinical Information: CONTINUE HEPARIN DRIP AT RATE 1200 UNITS/HR = 12 ML/HR PER APTT OF 60.7 (THE RAPEUTIC). NEXT APTT DRAW SCHEDULED FOR 1300 PER RX PROTOCOL. PHARMACY WILL SCHEDULE APTT DRAWS; PLEASE DO NOT SELF SCHEDULE. RANJITH DUDLEY PHARMACIST October 19, 2024 08:59
[2024-10-19] MEDS: ASPirin 81 mg TAB PO SCH (10:18)
[2024-10-19] MEDS: OPTISON 3ml Vial for INJ IV ONE (11:12)
--- NOTE | 2024-10-19 13:04 | DVHPN2 ---
Reviewed: Care Plan, H&P, Labs, Medications, Previous Orders, Radiology Changes from previous H/P or p: No Changes Eyes: No Pain, No Vision change, No Conjunctivae inflammation, No Eyelid inflammation, No Other, No Redness ENT: No Ear pain, No Ear discharge, No Nose pain, No Nose discharge, No Nose congestion, No Mouth pain, No Mouth swelling, No Throat pain, No Throat swelling, No Other Cardiovascular: Chest Pain; No Palpitations, No Orthopnea, No Paroxysmal Noc. Dyspnea, No Edema, No Lt Headedness, No Other Respiratory: No Cough, No Dry, No Shortness of breath, No SOB with excertion, No Wheezing, No Hemoptysis, No Pleuritic Pain, No Sputum, No Other Gastrointestinal: No Nausea, No Vomiting, No Abdominal Pain, No Diarrhea, No Constipation, No Melena, No Hematochezia, No Other Genitourinary: No Dysuria, No Frequency, No Incontinence, No Hematuria, No Retention, No Other Musculoskeletal: No other, No neck pain; shoulder pain; No arm pain, No back pain, No hand pain, No leg pain, No foot pain Skin: No Rash, No Lesions, No Jaundice, No Bruising, No Other Objective Vitals Vital Signs Date Time Temp Pulse Resp B/P (MAP) Pulse Ox O2 Delivery O2 Flow Rate FiO2 10/19/24 12:00 98.4 68 20 122/70 (87) 94 98.4 10/19/24 08:00 Room Air* 0 21 Intake/Output Intake and Output 10/19/24 07:00 Intake Total 48 ml Output Total 0 ml Balance 48 ml Intake Oral 0 ml IV Total 48 ml Output Urine Total 0 ml Medications Current Medications Medications Dose Ordered Sig/Fabien Route Start Time Stop Time Status Last Admin Dose Admin Aspirin 81 mg DAILY PO 10/19/24 10:00 10/19/24 10:18 81 MG Tamsulosin HCl 0.4 mg QPM PO 10/19/24 18:00 Hydralazine HCl 10 mg Q6HP PRN IV 10/18/24 20:15 Sodium Chloride 10 ml Q8HR IV 10/18/24 22:00 10/19/24 06:04 10 ML Ondansetron HCl 4 mg Q4HP PRN IV 10/18/24 20:15 Docusate Sodium 100 mg BIDPRN PRN PO 10/18/24 20:15 Acetaminophen 650 mg Q6HP PRN PO 10/18/24 20:15 Nitroglycerin 0.4 mg Q5MINP PRN SL 10/18/24 22:00 Morphine Sulfate 2 mg Q30M PRN IV 10/18/24 22:00 Atorvastatin Calcium 40 mg HS PO 10/18/24 22:00 10/18/24 23:00 40 MG Famotidine 20 mg Q12HR IV 10/18/24 23:00 10/19/24 10:14 20 MG Heparin Sodium/ Dextrose 250 ml @ 12 mls/hr [id number] IV 10/19/24 01:45 10/19/24 01:45 12 MLS/HR Acetaminophen/ Hydrocodone Bitart 1 tab Q4HP PRN PO 10/19/24 04:00 10/19/24 04:02 1 TAB Laboratory Results Laboratory Tests 10/19/24 07:12 Chemistry Test 10/18/24 15:59 10/19/24 07:12 Calcium Level 10.1 mg/dL (8.7-10.4) 9.6 mg/dL (8.7-10.4) Albumin 4.2 g/dL (3.2-4.8) Total Protein 6.3 g/dL (5.7-8.2) Coagulation Test 10/18/24 15:59 10/18/24 23:27 10/19/24 02:59 10/19/24 07:12 Prothrombin Time 10.6 sec (9.3-11.8) 11.0 sec (9.3-11.8) 11.3 sec (9.3-11.8) 11.2 sec (9.3-11.8) Prothrombin Time INR 1.00 (0.9-1.15) 1.04 (0.9-1.15) 1.07 (0.9-1.15) 1.06 (0.9-1.15) Activated Partial Thromboplast Time 26.5 SEC (24.5-34.5) 46.6 SEC (24.5-34.5) H 50.4 SEC (24.5-34.5) H 60.7 SEC (24.5-34.5) H Cardiac Markers Test 10/18/24 15:59 B-Type Natriuretic Peptide 51.60 pg/mL (0-100) LFT Test 10/19/24 07:12 Alanine Aminotransferase (ALT) 26 U/L (7-40) Alkaline Phosphatase 62 U/L (46-116) Aspartate Amino Transferase (AST) 38 U/L (13-40) Total Bilirubin 0.6 mg/dL (0.2-1.0) Urinalysis Test 10/19/24 02:30 Urine Color Yellow (Yellow) Urine Clarity Clear (Clear) Urine pH 6.5 (5.0-9.0) Urine Specific [place] 1.031 (1.001-1.035) Urine Protein Trace (Negative) H Urine Ketones Negative (Negative) Urine Blood Negative /uL (Negative) Urine Nitrite Negative (Negative) Urine Bilirubin Negative (Negative) Urine Urobilinogen 2 mg/dL (Negative) H Urine Leukocyte Esterase Negative /uL (Negative) Urine RBC 1 /hpf (0 - 3) Urine Microscopic WBC 4 /HPF (0-3) H Urine Squamous Epithelial Cells None seen /hpf (<5) Urine Bacteria None seen /hpf (None Seen) Urine Mucus Few (None Seen) Urine Glucose Normal mg/dL (Normal) Labs and/or images reviewed: Labs reviewed by me, Image(s) reviewed by me Assessment/Plan Assessment/Plan Acute chest pain Non ST-elevation [place] with a troponin 4414; Cardiology consult by Dr. Roman appreciated on heparin drip, left heart catheterization on Monday History of [place] with CABG 2010 Hypertension HIV being followed by Dr.Bhagat ORTIZ UTI Time Spent 55 minutes Advance care planning time 20 minutes Plan discussed with: Patient Date of Service: October 19, 2024 Billing Provider: CHANDRAKANT FARRELL MD Common Visit Codes: [id number] INP/OBS CARE(HIGH) Secondary Visit Codes: [id number] CARE PLAN 30 MINUTES CHANDRAKANT FARRELL MD October 19, 2024 13:04
[2024-10-19 13:27] LABS: Triglycerides 99 mg/dL (< 150)
[2024-10-19 13:28] LABS: INR 1.05 (0.9-1.15); Partial Thromboplastin Time 63.6 SEC (24.5-34.5); Prothrombin Time 11.1 sec (9.3-11.8)
[2024-10-19 13:28] LABS: LDL Cholesterol 82 mg/dL (< 100)
[2024-10-19 13:29] LABS: Cholesterol 129 mg/dL (< 200)
[2024-10-19 13:31] LABS: HDL Cholesterol 29 mg/dL (40-59)
--- NOTE | 2024-10-19 13:54 | DVHPN2 ---
Progress Note Date Seen: October 19, 2024 Medical Necessity Reason Pt with a Central, PICC or Fol: No Subjective Patient reports: Feels better Objective vital signs Vital Sign Date Time Temp Pulse Resp B/P (MAP) Pulse Ox O2 Delivery O2 Flow Rate FiO2 10/19/24 13:00 69 20 127/85 (99) 92 10/19/24 12:00 98.4 98.4 10/19/24 08:00 Room Air* 0 21 Total Intake and Output 10/18/24 10/18/24 10/19/24 15:00 23:00 07:00 Intake Total 48 ml Output Total 0 ml Balance 48 ml medications Current Medications Medications Dose Ordered Sig/Fabien Route Start Time Stop Time Status Last Admin Dose Admin Aspirin 81 mg DAILY PO 10/19/24 10:00 10/19/24 10:18 81 MG Tamsulosin HCl 0.4 mg QPM PO 10/19/24 18:00 Hydralazine HCl 10 mg Q6HP PRN IV 10/18/24 20:15 Sodium Chloride 10 ml Q8HR IV 10/18/24 22:00 10/19/24 06:04 10 ML Ondansetron HCl 4 mg Q4HP PRN IV 10/18/24 20:15 Docusate Sodium 100 mg BIDPRN PRN PO 10/18/24 20:15 Acetaminophen 650 mg Q6HP PRN PO 10/18/24 20:15 Nitroglycerin 0.4 mg Q5MINP PRN SL 10/18/24 22:00 Morphine Sulfate 2 mg Q30M PRN IV 10/18/24 22:00 Atorvastatin Calcium 40 mg HS PO 10/18/24 22:00 10/18/24 23:00 40 MG Famotidine 20 mg Q12HR IV 10/18/24 23:00 10/19/24 10:14 20 MG Heparin Sodium/ Dextrose 250 ml @ 12 mls/hr [id number] IV 10/19/24 01:45 10/19/24 01:45 12 MLS/HR Acetaminophen/ Hydrocodone Bitart 1 tab Q4HP PRN PO 10/19/24 04:00 10/19/24 04:02 1 TAB Examination: GENERAL:Abnormal, HEENT:Abnormal, LUNGS:Abnormal, CVS:Abnormal, ABDOMEN:Abnormal laboratory and microbiology Laboratory Tests 10/19/24 07:12 Test 10/19/24 07:12 Range/Units Serum Glucose 91 74-106 mg/dL Problem List/Assessment/Plan Problem List/Assessment/Plan hiv cad cabg htn hl C monday heparin gtt fu echo asa r/o infectious process per primary service for URI /gi symptoms pt and family agree to plan Plan discussed with: Patient My Orders My Orders Orders - VIKA CHARLES MD Procedure Category Date Status Time Cl Left Heart Cath CL 10/19/24 Logged 11:28 Galvanometer Assembler: Obtain ORDERS 10/19/24 Transmitted Consent For: 11:28 Date of Service: October 19, 2024 Billing Provider: VIKA CHARLES MD Common Visit Codes: NOT BILLABLE VIKA CHARLES MD October 19, 2024 13:54
--- NOTE | 2024-10-19 14:23 | DVHSR ---
APPROVED REPORT EXAM: Two-dimensional and M-mode echocardiogram with Doppler, color Doppler, bubble study and Optison . Blood Pressure: 109/67 mmHg INDICATION NSTEMI RISK FACTORS Height: 6', Weight: 178 DIMENSIONS LVDd5.2 (3.8-5.7cm)LA (2D)3.6 (1.9-4.0cm)Aortic Root4.2 (2.0-3.7cm) LVDs4.0 (2.5-4.0cm)LA (MM) (1.9-4.0cm)Aortic Cusp Exc1.8 (1.5-2.0cm) EF (%) 46.0 (55-70%)Rt. Atrium4.5 (1.9-4.0cm)Asc. Aorta cm IVSd1.1 (0.7-1.1cm)RV (D) (1.8-2.4cm) PWd1.1 (0.7-1.1cm) Mitral Valve MitralMitral Stenosis E wave0.80m/sMV Mean GR.mmHg A wave0.90m/sMV Peak GR.mmHg E/A ratio0.92D MVAcm2 Aortic Valve Aortic ValveAortic Stenosis V10.80m/Araceli Mean GR.6mmHg V21.50m/Araceli Peak GR.10mmHg LVOT Diameter2.3 (1.8-2.4cm)Doppler AVA2.21cm2 AI P 1/2 Uowy675.72ms Conclusion lvef 50 % postop cabg, optison used for LV opacification normal rv function left atrium enlarged no severe valve abnormalities noted
[2024-10-19] MEDS ORDERED: LISI20TA56 PO (17:32)
[2024-10-19] MEDS ORDERED: METO-289 PO (17:32)
[2024-10-19] MEDS ORDERED: ASPI1TAB20 PO (17:32)
[2024-10-19] MEDS ORDERED: BICT1TAB4 PO (17:32)
[2024-10-19] MEDS ORDERED: AMLO1TAB23 PO (17:32)
[2024-10-19] MEDS ORDERED: GEMF-66 PO (17:32)
[2024-10-19] MEDS ORDERED: PANT1INJ3 PO (17:32)
[2024-10-19] MEDS ORDERED: PREG50CA PO (17:32)
[2024-10-19] MEDS ORDERED: TAMS0.4C39 PO (17:32)
[2024-10-19] MEDS ORDERED: TRAZ-228 PO (17:32)
[2024-10-19] MEDS ORDERED: ATOR40TA52 PO (17:32)
[2024-10-19] MEDS: TAMSULOSIN HYDROCHLORIDE 0.4 MG CAP PO SCH (18:22)
[2024-10-19 19:42] LABS: INR 1.05 (0.9-1.15); Partial Thromboplastin Time 60.3 SEC (24.5-34.5); Prothrombin Time 11.1 sec (9.3-11.8)
[2024-10-19] MEDS ORDERED: [UNRECOGNIZED DRUG - OTHER] PO SCH (22:15)
[2024-10-20 05:00] VITALS: BP 129/91; PULSE 82; RESP 18; TEMP 97.8; O2SAT 99
[2024-10-20 07:18] LABS: Basophils # (auto) 0 10 ^3/uL (0-0.2); Basophils % (auto) 0.4 % (0.0-2.0); Eosinophils # (auto) 0.1 10 ^3/uL (0-0.8); Hematocrit 37.3 % (41.0-53.0); Hemoglobin 12.9 g/dL (13.5-17.5); Lymphocytes # (auto) 1.3 10 ^3/uL (0.4-5.4); Lymphocytes % (auto) 28.9 % (10.0-50.0); Mean Corpuscular Hemoglobin 33.5 pg (28.0-32.0); Mean Corpuscular Hgb Conc. 34.6 g/dL (32.0-36.0); Monocytes # (auto) 0.4 10 ^3/uL (0-1.3); Monocytes % (auto) 9.5 % (0.0-12.0); Neutrophils # (auto) 2.7 10 ^3/uL (1.6-8.6); Neutrophils % (auto) 59.2 % (37.0-80.0); Nucleated Red Blood Cells % 0.1 %; Platelet Count (auto) 174 10^3/uL (140-450); Red Blood Cells 3.84 10^6/uL (4.5-5.90); Red Cell Distribution Width 12.7 % (11.8-14.3); White Blood Cell 4.6 10^3/uL (4.4-10.8)
[2024-10-20 07:43] LABS: INR 1.05 (0.9-1.15); Prothrombin Time 11.1 sec (9.3-11.8)
[2024-10-20 07:46] LABS: Partial Thromboplastin Time 74.6 SEC (24.5-34.5)
[2024-10-20 08:00] VITALS: PULSE 80; RESP 18
[2024-10-20 08:52] VITALS: BP 127/96; PULSE 77; RESP 20; TEMP 98.7; O2SAT 99
[2024-10-20] MEDS ORDERED: [UNRECOGNIZED DRUG - OTHER] PO SCH (10:00)
--- NOTE | 2024-10-20 10:10 | DVHPN2 ---
Reviewed: Care Plan, H&P, Labs, Medications, Previous Orders, Radiology Changes from previous H/P or p: No Changes Eyes: No Pain, No Vision change, No Conjunctivae inflammation, No Eyelid inflammation, No Other, No Redness ENT: No Ear pain, No Ear discharge, No Nose pain, No Nose discharge, No Nose congestion, No Mouth pain, No Mouth swelling, No Throat pain, No Throat swelling, No Other Cardiovascular: Chest Pain; No Palpitations, No Orthopnea, No Paroxysmal Noc. Dyspnea, No Edema, No Lt Headedness, No Other Respiratory: No Cough, No Dry, No Shortness of breath, No SOB with excertion, No Wheezing, No Hemoptysis, No Pleuritic Pain, No Sputum, No Other Gastrointestinal: No Nausea, No Vomiting, No Abdominal Pain, No Diarrhea, No Constipation, No Melena, No Hematochezia, No Other Genitourinary: No Dysuria, No Frequency, No Incontinence, No Hematuria, No Retention, No Other Musculoskeletal: No other, No neck pain; shoulder pain; No arm pain, No back pain, No hand pain, No leg pain, No foot pain Skin: No Rash, No Lesions, No Jaundice, No Bruising, No Other Objective Vitals Vital Signs Date Time Temp Pulse Resp B/P (MAP) Pulse Ox O2 Delivery O2 Flow Rate FiO2 10/20/24 08:52 98.7 77 20 127/96 (106) 99 98.7 10/20/24 08:00 Room Air* 0 21 Intake/Output Intake and Output 10/20/24 07:00 Intake Total 2224 ml Balance 2224 ml Intake Oral 2140 ml IV Total 84 ml Medications Current Medications Medications Dose Ordered Sig/Fabien Route Start Time Stop Time Status Last Admin Dose Admin Aspirin 81 mg DAILY PO 10/19/24 10:00 10/19/24 10:18 81 MG Tamsulosin HCl 0.4 mg QPM PO 10/19/24 18:00 10/19/24 18:22 0.4 MG Hydralazine HCl 10 mg Q6HP PRN IV 10/18/24 20:15 Sodium Chloride 10 ml Q8HR IV 10/18/24 22:00 10/20/24 05:32 10 ML Ondansetron HCl 4 mg Q4HP PRN IV 10/18/24 20:15 Docusate Sodium 100 mg BIDPRN PRN PO 10/18/24 20:15 Acetaminophen 650 mg Q6HP PRN PO 10/18/24 20:15 Nitroglycerin 0.4 mg Q5MINP PRN SL 10/18/24 22:00 Morphine Sulfate 2 mg Q30M PRN IV 10/18/24 22:00 Atorvastatin Calcium 40 mg HS PO 10/18/24 22:00 10/19/24 21:49 40 MG Famotidine 20 mg Q12HR IV 10/18/24 23:00 10/19/24 21:48 20 MG Heparin Sodium/ Dextrose 250 ml @ 12 mls/hr [id number] IV 10/19/24 01:45 10/19/24 19:30 12 MLS/HR Acetaminophen/ Hydrocodone Bitart 1 tab Q4HP PRN PO 10/19/24 04:00 10/19/24 21:50 1 TAB Patient Own Medication 1 DAILY PO 10/19/24 22:15 Laboratory Results Laboratory Tests 10/19/24 07:12 10/20/24 06:36 Coagulation Test 10/19/24 13:06 10/19/24 19:17 10/20/24 06:36 Prothrombin Time 11.1 sec (9.3-11.8) 11.1 sec (9.3-11.8) 11.1 sec (9.3-11.8) Prothrombin Time INR 1.05 (0.9-1.15) 1.05 (0.9-1.15) 1.05 (0.9-1.15) Activated Partial Thromboplast Time 63.6 SEC (24.5-34.5) H 60.3 SEC (24.5-34.5) H 74.6 SEC (24.5-34.5) *H Urinalysis Test 10/19/24 02:30 Urine Color Yellow (Yellow) Urine Clarity Clear (Clear) Urine pH 6.5 (5.0-9.0) Urine Specific [place] 1.031 (1.001-1.035) Urine Protein Trace (Negative) H Urine Ketones Negative (Negative) Urine Blood Negative /uL (Negative) Urine Nitrite Negative (Negative) Urine Bilirubin Negative (Negative) Urine Urobilinogen 2 mg/dL (Negative) H Urine Leukocyte Esterase Negative /uL (Negative) Urine RBC 1 /hpf (0 - 3) Urine Microscopic WBC 4 /HPF (0-3) H Urine Squamous Epithelial Cells None seen /hpf (<5) Urine Bacteria None seen /hpf (None Seen) Urine Mucus Few (None Seen) Urine Glucose Normal mg/dL (Normal) Labs and/or images reviewed: Labs reviewed by me, Image(s) reviewed by me Assessment/Plan Assessment/Plan Acute chest pain Non ST-elevation [place] with a troponin 4414; Cardiology consult by Dr. Roman appreciated on heparin drip, left heart catheterization on Monday History of [place] with CABG 2010 Hypertension HIV being followed by [facility] Time Spent 55 minutes Plan discussed with: Patient My Orders Orders - CHANDRAKANT FARRELL MD Procedure Category Date Status Time Transfer Orders XFER 10/19/24 Transmitted 13:31 Date of Service: Oct 20, 2024 Billing Provider: CHANDRAKANT FARRELL MD Common Visit Codes: [id number] INP/OBS CARE(HIGH) CHANDRAKANT FARRELL MD Oct 20, 2024 10:10
--- NOTE | 2024-10-20 10:53 | DVHPN2 ---
Progress Note Date Seen: Oct 20, 2024 Medical Necessity Reason Pt with a Central, PICC or Fol: No Objective vital signs Vital Sign Date Time Temp Pulse Resp B/P (MAP) Pulse Ox O2 Delivery O2 Flow Rate FiO2 10/20/24 08:52 98.7 77 20 127/96 (106) 99 98.7 10/20/24 08:00 Room Air* 0 21 Total Intake and Output 10/19/24 10/19/24 10/20/24 15:00 23:00 07:00 Intake Total 84 ml 740 ml 1400 ml Balance 84 ml 740 ml 1400 ml medications Current Medications Medications Dose Ordered Sig/Fabien Route Start Time Stop Time Status Last Admin Dose Admin Aspirin 81 mg DAILY PO 10/19/24 10:00 10/20/24 10:20 81 MG Tamsulosin HCl 0.4 mg QPM PO 10/19/24 18:00 10/19/24 18:22 0.4 MG Hydralazine HCl 10 mg Q6HP PRN IV 10/18/24 20:15 Sodium Chloride 10 ml Q8HR IV 10/18/24 22:00 10/20/24 05:32 10 ML Ondansetron HCl 4 mg Q4HP PRN IV 10/18/24 20:15 Docusate Sodium 100 mg BIDPRN PRN PO 10/18/24 20:15 Acetaminophen 650 mg Q6HP PRN PO 10/18/24 20:15 Nitroglycerin 0.4 mg Q5MINP PRN SL 10/18/24 22:00 Morphine Sulfate 2 mg Q30M PRN IV 10/18/24 22:00 Atorvastatin Calcium 40 mg HS PO 10/18/24 22:00 10/19/24 21:49 40 MG Famotidine 20 mg Q12HR IV 10/18/24 23:00 10/20/24 10:19 20 MG Heparin Sodium/ Dextrose 250 ml @ 12 mls/hr [id number] IV 10/19/24 01:45 10/19/24 19:30 12 MLS/HR Acetaminophen/ Hydrocodone Bitart 1 tab Q4HP PRN PO 10/19/24 04:00 10/19/24 21:50 1 TAB Patient Own Medication 1 DAILY PO 10/19/24 22:15 Examination: GENERAL:Abnormal, HEENT:Abnormal, LUNGS:Abnormal, CVS:Abnormal, ABDOMEN:Abnormal laboratory and microbiology Laboratory Tests 10/20/24 06:36 10/19/24 07:12 Test 10/19/24 07:12 Range/Units Serum Glucose 91 74-106 mg/dL Problem List/Assessment/Plan Problem List/Assessment/Plan hiv cad cabg htn hl [facility] monday heparin gtt--dc today fu echo asa r/o infectious process per primary service for URI /gi symptoms pt and family agree to plan Plan discussed with: Patient My Orders My Orders Orders - VIKA CHARLES MD Procedure Category Date Status Time Cl Left Heart Cath CL 10/19/24 Logged 11:28 Semi Conductor Assembler: Obtain ORDERS 10/19/24 Transmitted Consent For: 11:28 Date of Service: Oct 20, 2024 Billing Provider: VIKA CHARLES MD Common Visit Codes: NOT BILLABLE VIKA CHARLES MD Oct 20, 2024 10:53
[2024-10-20] MEDS: CLOPIDOGREL BISULFATE 75 MG TAB PO ONE (11:52)
[2024-10-20 12:45] VITALS: BP 134/96; PULSE 83; RESP 20; TEMP 98.6; O2SAT 98
[2024-10-20 17:02] VITALS: BP 142/99; PULSE 81; RESP 20; TEMP 98.7; O2SAT 95
[2024-10-20 20:00] VITALS: PULSE 94; PULSE 98; RESP 18
--- NOTE | 2024-10-21 08:35 | DVHDS2 ---
Discharge Summary Date of Admission October 18, 2024 at 21:52 Date of Discharge: Oct 20, 2024 Admitting Diagnosis Chest pain Wounds: None Labs/Diagnostic Data: Laboratory Results Test 10/20/24 06:36 10/19/24 07:12 10/19/24 02:30 10/18/24 18:40 White Blood Count 4.6 10^3/uL (4.4-10.8) Red Blood Count 3.84 10^6/uL (4.5-5.90) Hemoglobin 12.9 g/dL (13.5-17.5) Hematocrit 37.3 % (41.0-53.0) Mean Corpuscular Volume 97.0 fL (80.0-100.0) Mean Corpuscular Hemoglobin 33.5 pg (28.0-32.0) Mean Corpuscular Hemoglobin Concent 34.6 g/dL (32.0-36.0) Red Cell Distribution Width 12.7 % (11.8-14.3) Platelet Count 174 10^3/uL (140-450) Mean Platelet Volume 7.5 fL (6.9-10.8) Neutrophils (%) (Auto) 59.2 % (37.0-80.0) Lymphocytes (%) (Auto) 28.9 % (10.0-50.0) Monocytes (%) (Auto) 9.5 % (0.0-12.0) Eosinophils (%) (Auto) 2.0 % (0.0-7.0) Basophils (%) (Auto) 0.4 % (0.0-2.0) Neutrophils # (Auto) 2.7 10 ^3/uL (1.6-8.6) Lymphocytes # (Auto) 1.3 10 ^3/uL (0.4-5.4) Monocytes # (Auto) 0.4 10 ^3/uL (0-1.3) Eosinophils # (Auto) 0.1 10 ^3/uL (0-0.8) Basophils # (Auto) 0 10 ^3/uL (0-0.2) Nucleated Red Blood Cells 0.1 % Prothrombin Time 11.1 sec (9.3-11.8) Prothrombin Time INR 1.05 (0.9-1.15) Activated Partial Thromboplast Time 74.6 SEC (24.5-34.5) Sodium Level 140 mmol/L (136-145) Potassium Level 3.8 mmol/L (3.5-5.1) Chloride Level 108 mmol/L (98-107) Carbon Dioxide Level 26 mmol/L (20-31) Anion Gap 6 (5-15) Blood Urea Nitrogen 19 mg/dL (9-23) Creatinine 1.56 mg/dL (0.700-1.30) Glomerular Filtration Rate Calc 52 mL/min (>90) BUN/Creatinine Ratio 12.2 (10.0-20.0) Serum Glucose 91 mg/dL (74-106) Calcium Level 9.6 mg/dL (8.7-10.4) Total Bilirubin 0.6 mg/dL (0.2-1.0) Aspartate Amino Transferase (AST) 38 U/L (13-40) Alanine Aminotransferase (ALT) 26 U/L (7-40) Alkaline Phosphatase 62 U/L (46-116) Total Protein 6.3 g/dL (5.7-8.2) Albumin 4.2 g/dL (3.2-4.8) Triglycerides Level 99 mg/dL (< 150) Cholesterol Level 129 mg/dL (< 200) LDL Cholesterol 82 mg/dL (< 100) HDL Cholesterol 29 mg/dL (40-59) Urine Color Yellow (Yellow) Urine Clarity Clear (Clear) Urine pH 6.5 (5.0-9.0) Urine Specific [place] 1.031 (1.001-1.035) Urine Protein Trace (Negative) Urine Ketones Negative (Negative) Urine Blood Negative /uL (Negative) Urine Nitrite Negative (Negative) Urine Bilirubin Negative (Negative) Urine Urobilinogen 2 mg/dL (Negative) Urine Leukocyte Esterase Negative /uL (Negative) Urine RBC 1 /hpf (0 - 3) Urine Microscopic WBC 4 /HPF (0-3) Urine Squamous Epithelial Cells None seen /hpf (<5) Urine Bacteria None seen /hpf (None Seen) Urine Mucus Few (None Seen) Urine Glucose Normal mg/dL (Normal) Troponin I High Sensitivity 4250 ng/L (</=54) Influenza Type A Antigen Negative (Negative) Influenza Type B Antigen Negative (Negative) SARS-CoV-2 Antigen (Rapid) Negative (NEGATIVE) Test 10/18/24 15:59 B-Type Natriuretic Peptide 51.60 pg/mL (0-100) Other Laboratory Tests 10/20/24 06:36 10/19/24 07:12 Brief Hx & Hospital Course: Discharge summary dictated after the patient left AMA 53-year-old male with a history of [place] status post CABG 2010 hypertension HIV being followed by Dr. Nicholson came in for chest pain troponin elevated 4414. Diagnosed with a non ST-elevation [place] cardiology consult by Dr. Roman placed on heparin drip scheduled for left heart catheterization on 10/21/2024. Patient left AMA on 10/20/24 . Consequences and complications including possible explained to the patient and he verbalized understanding. Consults/Reason for consult Cardiology Dr. Roman Operations or Procedures Echocardiogram Condition at Discharge: Fair Final Diagnosis/Problems List Acute chest pain Non ST-elevation [place] with a troponin 4414; Cardiology consult by Dr. Roman appreciated on heparin drip, left heart catheterization on Monday History of [place] with CABG 2010 Hypertension HIV being followed by [facility] Discharge Disposition: AMA Discharge Instruct/Medications Diet comment: Not applicable Patient left AMA Activity comment: Not applicable Patient left AMA Follow Up/Referral: Not applicable Patient left AMA Medications: Not applicable Patient left AMA 36 (Time taken for discharge summary 36 minutes) Discharge Statement: "Patient was advised to return to the ER or call 911 if any headaches, dizziness, shortness of breath, chest pain, abdominal pain, bleeding, fevers, or worsening of medical condition. Patient was counseled about treatment plan, medications, possible side effects, patientverbalized understanding. All questions were answered to the best of my ability. This discharge took greater then 30 minutes in planning, reviewing documentation, counseling the patient, and discussing with other team members." ASSESSMENT ASSESSMENT Hospital Course Left AMA Assessment Date of Service: Oct 21, 2024 Billing Provider: CHANDRAKANT FARRELL MD Common Visit Codes: 91931-JXN/OBS DISCH DAY >30min CHANDRAKANT FARRELL MD Oct 21, 2024 08:35
== END 2024-10-20 22:45 | disposition left against medical advice (07) | DRG 190 ==
LOC: ER 15:41 → OVERFLOW 21:52 → ER 21:53 → OVERFLOW 21:53 → TELE-EAST 10-19 16:03
PROVIDERS: ADMIT Nurse Practitioner Family; ATTEND Nurse Practitioner Family
DX: I21.4 Non-ST elevation (NSTEMI) myocardial infarction (principal); N17.9 Acute kidney failure, unspecified; I13.0 Hypertensive heart and chronic kidney disease with heart failure and stage 1 through stage 4 chronic kidney disease, or unspecified chronic kidney disease; I50.9 Heart failure, unspecified; Z95.1 Presence of aortocoronary bypass graft; N39.0 Urinary tract infection, site not specified; N18.30 Chronic kidney disease, stage 3 unspecified; I25.10 Atherosclerotic heart disease of native coronary artery without angina pectoris; E78.5 Hyperlipidemia, unspecified; Z53.29 Procedure and treatment not carried out because of patient's decision for other reasons; Z87.891 Personal history of nicotine dependence; Z79.82 Long term (current) use of aspirin; Z88.0 Allergy status to penicillin; Z88.5 Allergy status to narcotic agent; A08.4 Viral intestinal infection, unspecified
CPT/HCPCS: 36415; 71046; 80048; 80053; 80061; 81001; 83880; 84484; 85025; 85610; 85730; 87426; 87804; 93005; 93306; 96374; 99291; G0378; J3490; Q9956

== ENCOUNTER 2025-02-10 07:06 | Day surgery (SDC) | payer MEDICAID ==
[~2025-02-10] VITALS: Ht 182.9 cm; Wt 80.3 kg
[~2025-02-10 07:06] MED LIST: AMLO1TAB23 PO; ASPI1TAB20 PO; ATOR20TA50 PO; BICT1TAB PO; GEMF-66 PO; LISI10TA34 PO; METO25TA5 PO; PANT1INJ3 PO; TAMS0.4C39 PO; TRAZ-227 PO
[2025-02-10] MEDS: IODIXANOL 320MG/ML 100ML BTL IV ONE (10:23)
[2025-02-10] MEDS: ANGIOMAX 250 MG VIAL IV ONE (10:41)
[2025-02-10] MEDS: HEPARIN SODIUM (PORCINE) 5000 UNITS/ML 1ML VIAL ONE (10:41)
[2025-02-10] MEDS: VERAPAMIL 2.5MG/ML INJ 2ML VIAL IV ONE (10:41)
[2025-02-10] MEDS: fentaNYL CITRATE 100 MCG/2 ML VL ONE (10:41)
[2025-02-10] MEDS: SODIUM CHL 0.9% 0 ML ONE (10:42)
[2025-02-10] MEDS: MIDAZOLAM HCL 2MG/2ML 2ml VIAL (1mg/ml) ONE (10:42)
[2025-02-10] MEDS: LIDOCAINE 2%HCL (LOCAL ANESTH.) INJ 20ML MDV ONE (10:42)
[2025-02-10 11:25] VITALS: BP 128/81; PULSE 67; RESP 10; TEMP 98; O2SAT 94
--- NOTE | 2025-02-10 11:38 | DVHOP2 ---
Operative Report Operative Report CARDIAC FINISHER PLATE PROCEDURE REPORT [place], [place] Date of Service: 02/10/25 Stock Or Delivery Clerk: Vika Charles MD PROCEDURES PERFORMED: Coronary angiogram, left heart catheterization, bypass graft angiopgrpahy, MONK angiography, US guided vascular access saved to pacs system conscious sedation administration and supervision, less than 15 minutes; fluoroscopy use and interpretation. PREOPERATIVE DIAGNOSES: previous NSTEMI POSTOP DIAGNOSIS: cad DESCRIPTION OF PROCEDURE: The patient or appropriate family signed informed consent understanding the risks, benefits and alternatives of the procedure, they wished to proceed. The patient was brought to the cardiac laboratory monitor in n.p.o. state. The patient was prepped in a sterile fashion. Sedation was used per cardiac cath protocol. I administered 5 mL of 2% lidocaine to the right groin With an antegrade front wall puncture using US guidance saved to pacs . I cannulated the right common femoral artery and placed a 6-Prydeinig Glidesheath . . Next, a - [id number], JL4 and pigtail were used for coronary angiogram and LVEDP measurement and pressure pullback. At the completion of procedure, all guides and wires were removed, and there were no immediate complications. FINDINGS: RCA: Moderate vessel off the right sinus of Valsalva, it is prox BOOM MASTER LEFT MAIN: Moderate size left main, it bifurcates into LAD and circumflex. diffuse disease CIRCUMFLEX: Moderate caliber vessel coming off the left main .ostial BOOM MASTER LAD: LAD is a moderate caliber vessel coming of the left main. mid LAD is 90% diseased and mid to distal LAD is BOOM MASTER SVG to rPDA: massive large vessel about 9-10mm aneurysmal dilattaion with proximal 60-70% stenosis SVG to CX: very large massive vessel up to 70% mid stenosis MONK to LAD atretic, not functional LVEDP of 11 mmhg CONCLUSIONS: 1. [place] vessel BOOM MASTER 2. patent grafts that are large aneursymal PLAN: Aggressive risk factor modification and medical management for the patient. if pt at high risk, low dose doac is an option given aneruysmal diltation of vessels VIKA CHARLES MD Feb 10, 2025 11:38
[2025-02-10 11:40] VITALS: BP 135/85; PULSE 69; RESP 12; O2SAT 96
[2025-02-10 11:55] VITALS: BP 124/77; PULSE 67; RESP 15; O2SAT 94
[2025-02-10 12:10] VITALS: BP 117/72; PULSE 68; RESP 17; O2SAT 93
[2025-02-10 12:25] VITALS: BP 120/78; PULSE 70; RESP 12; O2SAT 95
[2025-02-10 12:55] VITALS: BP 142/86; PULSE 69; RESP 10; O2SAT 97
--- NOTE | 2025-02-11 08:05 | ECG ---
[facility] Test Date: 2025-02-10 Test Time: 08:53:45 Pat Name: KEITH SOW Department: Room: Gender: Group Home Supervisor: Miko SALGADO : 1970 Requested By: VIKA CHARLES Order Number: [id number] Reading MD: Nathan Cortes Measurements Intervals [place] Rate: 62 P: 38 NE: 260 QRS: 53 QRSD: 90 T: 79 QT: 434 QTc: 440 Interpretive Statements Sinus rhythm with 1st degree AV block Electronically Signed On 02-11-2025 15:38:37 PDT by Nathan Cortes Please click the below link to view image of tracing.
== END 2025-02-10 13:37 | disposition home or self-care (01) ==
LOC: CATH 07:06
PROVIDERS: ATTEND Internal Medicine
DX: I25.2 Old myocardial infarction (principal); I25.10 Atherosclerotic heart disease of native coronary artery without angina pectoris; I25.82 Chronic total occlusion of coronary artery; I50.9 Heart failure, unspecified; Z79.82 Long term (current) use of aspirin; Z79.899 Other long term (current) drug therapy; Z88.0 Allergy status to penicillin; Z88.5 Allergy status to narcotic agent; Z95.1 Presence of aortocoronary bypass graft; Z82.2 Family history of deafness and hearing loss
CPT/HCPCS: 93005; 93459; C1760; C1894; J1644; J2250; J3010; Q9967; 99152; 99153